=== PATIENT | female | born 1995 | race Two or more races ===

== ENCOUNTER 2019-12-13 19:44 | Emergency (ER) | payer OTHER, SELFPAY ==
[2019-12-13 19:49] VITALS: BP 120/74; PULSE 88; RESP 20; TEMP 37.2; O2SAT 100
--- NOTE | 2019-12-13 20:24 | ED.GENADULT ---
HPI - General Adult General Chief complaint: Nausea/Vomiting/Diarrhea Stated complaint: nausea Time Seen by Provider: 12/13/19 20:24 Source: patient Mode of arrival: ambulatory Limitations: no limitations History of Present Illness HPI narrative: 24-year-old female patient presents to the [facility] with complaints of diarrhea nausea that started this morning. Patient denies take anything for her symptoms. Patient denies any fevers or vomiting. Patient states that her abdomen feels sore from the frequent diarrhea and states that she feels achy all over. Patient denies any or breast-feeding at that time. Related Data Allergies Allergy/AdvReac Type Severity Reaction Status Date / Time Penicillins AdvReac Intermediate ABDOMINAL Verified 12/13/19 19:57 PAIN AND DIARRHEA Review of Systems Review of Systems: Narrative: CONSTITUTIONAL: Denies fever, chills, or sweats. EYES: Denies visual changes, redness, or discharge. ENT: Denies rhinorrhea, congestion, sore throat, or otalgia. CARDIOVASCULAR: Denies chest pain, palpitations, or edema. RESPIRATORY: Denies cough or dyspnea. GASTROINTESTINAL: Denies abdominal pain, positive nausea, denies vomiting, positive diarrhea. GENITOURINARY: Denies dysuria or hematuria. SKIN: Denies rash or itching. MUSCULOSKELETAL: Denies back pain, joint pain, or myalgia. NEUROLOGIC: Denies headache, numbness, or weakness. PSYCHIATRIC: Denies anxiety or depression. PMFSH Comments At the time of my signature I agree with nursing past medical history, surgical, social, and family history. There is no relevant family history pertinent to the presenting complaint. Exam Narrative: Exam Narrative: GENERAL: Well-appearing, well-nourished, and in no acute distress. HEAD: Normocephalic, atraumatic. EYES: PERRLA and EOMI. ENT: Nares clear, no rhinorrhea or epistaxis. Mucous membranes moist. NECK: Supple. No lymphadenopathy CHEST: Clear to auscultation. No respiratory distress. HEART: Regular rate and rhythm. No murmur heard. Normal peripheral pulses. ABDOMEN: Soft, flat, nondistended. No guarding, rebound tenderness, or rigid. Patient has some cramping to the lower abdomen but no tenderness on palpation at this time. No pulsatilla masses. Bowel sounds present in all four quadrants and hyperactive. No organomegaly. Negative Kwan?s sign. No periumbicial tenderness. No Supra public tenderness or distension. Good femoral pulses bilaterally. No hernia noted. No scars or surface trauma. EXTREMITIES: Normal range of motion. No edema. SKIN: Warm, dry, no rash. NEURO: No focal deficits. Alert and oriented x3. Course Vital Signs Vital signs: Vital Signs Temperature 37.2 C 12/13/19 19:49 Pulse Rate 88 12/13/19 19:49 Respiratory Rate 12/13/19 19:49 Blood Pressure 120/74 12/13/19 19:49 Pulse Oximetry 100 12/13/19 19:49 Temperature 37.2 C 12/13/19 19:49 Pulse Rate 88 12/13/19 19:49 Respiratory Rate 12/13/19 19:49 Blood Pressure 120/74 12/13/19 19:49 Pulse Oximetry 100 12/13/19 19:49 Vital signs reviewed. Medical Decision Making Differential Diagnosis Differential Diagnosis: Differential diagnosis: Appendicitis, ovarian torsion, gallbladder disease, ovarian torsion, pancreatitis, lower lobe pneumonia,AAA, AMI or ACS, DKA, diverticulitis. Discussed with patient that this is most likely viral and the fact that she is not vomiting or running fevers is reassuring. Discussed with patient that I will discharge her home with some Zofran to help with the nausea and any vomiting that may occur but she needs to let the diarrhea run its course. Discussed with patient if she feels like she is getting dehydrated or she starts vomiting running fevers or having worsening abdominal pain she would need to go the ER at that time. Patient verbalized understanding denies any other questions or concerns at this time. Vital Signs Vital Signs: Vital Signs Temperature 37.2 C
== END 2019-12-13 20:35 | disposition home or self-care (01) ==
PROVIDERS: Emergency Provider Nurse Practitioner Family
DX: K52.9 Noninfective gastroenteritis and colitis, unspecified (principal); J45.909 Unspecified asthma, uncomplicated
CPT/HCPCS: 99213; G0463

== ENCOUNTER 2020-01-02 19:57 | Emergency (ER) | payer OTHER, SELFPAY ==
[2020-01-02 20:00] VITALS: BP 133/71; PULSE 87; RESP 18; TEMP 36.8; O2SAT 100
--- NOTE | 2020-01-02 20:25 | ED.GENADULT ---
HPI - General Adult General Chief complaint: Nausea/Vomiting/Diarrhea Stated complaint: nausea and diarrhea Time Seen by Provider: 01/02/20 20:27 Source: patient and RN notes reviewed Mode of arrival: ambulatory Limitations: no limitations History of Present Illness HPI narrative: This is a 24 years old female presented office for evaluation of nauseous and diarrhea since this morning. Describes stool as loose. Denies vomiting. Denies fever or sick contact. Stated she was seen here a month ago with similar symptoms and resolve in 1 day. Denies changes in diet. Denies urinary symptoms or chance of . Stated she on control. She would like a school excuse today. I reviewed patient previous visit. HPI - General Adult General Chief complaint: Nausea/Vomiting/Diarrhea Stated complaint: nausea Time Seen by Provider: 12/13/19 20:24 Source: patient Mode of arrival: ambulatory Limitations: no limitations History of Present Illness HPI narrative: 24-year-old female patient presents to the [facility] with complaints of diarrhea nausea that started this morning. Patient denies take anything for her symptoms. Patient denies any fevers or vomiting. Patient states that her abdomen feels sore from the frequent diarrhea and states that she feels achy all over. Patient denies any or breast-feeding at that time. Related Data Home Medications Medication Instructions Recorded Confirmed No Home Medications 01/02/20 01/02/20 Allergies Allergy/AdvReac Type Severity Reaction Status Date / Time Penicillins AdvReac Intermediate ABDOMINAL Verified 12/13/19 19:57 PAIN AND DIARRHEA Review of Systems Review of Systems: Narrative: CONSTITUTIONAL: Denies fever, chills, sweats. ENT: Denies rhinorrhea, congestion, sore throat, otalgia. CARDIOVASCULAR: Denies chest pain, palpitation, edema. RESPIRATORY: Denies dyspnea, wheezing, cough GASTROINTESTINAL: Denies abdominal pain, nausea, vomiting, diarrhea. GENITOURINARY: Denies urinary symptoms or discharge SKIN: Denies rash MUSCULOSKELETAL: Denies acute back pain NEUROLOGIC: Denies lightheaded PMFSH Comments At time of signature, I agree with nursing past medical, surgical, social and family history. There is no relevant family history pertinent to the presenting complaint. Exam Narrative: Exam Narrative: GENERAL: This is a well-nourished, well-developed patient, in no apparent distress. EYES: Sclera clear/white. Vision is grossly intact. EARS: External ears normal, auditory canals clear and without drainage, TMs normal without perforation. Hearing grossly intact. NOSE: External nose normal with no obvious nasal discharge, nares without redness, no rhinorrhea. THROAT: Mucous membranes moist, posterior pharynx clear. NECK: Neck supple, non-tender without lymphadenopathy, masses or thyromegaly. CARDIOVASCULAR: Regular rate and rhythm without murmurs, gallops, or rubs. RESPIRATORY: Clear to auscultation. Breath sounds equal bilaterally. No wheezes, rales, or rhonchi. GASTROINTESTINAL: Abdomen soft, non-tender, nondistended. Bowel sounds are active. No hepato-splenomegaly, or palpable masses. No guarding. SKIN: warm, intact with no suspicious lesions or rash, good texture and turgor. NEURO: awake, alert, and oriented to person, place and time. There were no obvious focal neurologic abnormalities. Steady gait Tee Coma Scale Eye Opening: Spontaneous 4 Tyler Coma Scale Motor: Obeys Commands 6 Tee Coma Scale Verbal: Oriented 5 Course Vital Signs Vital signs: Vital Signs Temperature 98.2 F 01/02/20 20:00 Pulse Rate 87 01/02/20 20:00 Respiratory Rate 18 01/02/20 20:00 Blood Pressure 133/71 01/02/20 20:00 Pulse Oximetry 100 01/02/20 20:00 Temperature 98.2 F 01/02/20 20:00 Pulse Rate 87 01/02/20 20:00 Respiratory Rate 18 01/02/20 20:00 Blood Pressure 133/71 01/02/20 20:00 Pulse Oximetry 100 01/02/20 20:00
== END 2020-01-02 20:45 | disposition home or self-care (01) ==
PROVIDERS: Emergency Provider Nurse Practitioner
DX: R19.7 Diarrhea, unspecified (principal); J45.909 Unspecified asthma, uncomplicated
CPT/HCPCS: 99211; G0463

== ENCOUNTER 2020-01-08 19:42 | Emergency (ER) | payer OTHER, SELFPAY ==
[2020-01-08 20:00] VITALS: BP 144/84; PULSE 77; RESP 16; TEMP 37.2; O2SAT 100
--- NOTE | 2020-01-08 20:29 | ED.ABDPAIN ---
HPI - Abdominal Pain General Chief Complaint: Abdominal Pain Stated Complaint: abd pain/vomiting/diarrhea Time Seen by Provider: 01/08/20 20:14 Source: patient, RN notes reviewed and old records reviewed Mode of arrival: ambulatory Limitations: no limitations History of Present Illness HPI narrative: Patient presents today complaining of nausea, vomiting, abdominal pain, diarrhea, bilateral flank pain. She vomited once at 11:00 this morning. States she has diarrhea stools after every time she eats or drinks today. Twice in the recent past, patient has been seen at [facility] for similar symptoms: 12/13/2019 and 01/02/2020. States the symptoms usually resolve within 24 hours. Patient has been given nausea medication and has been told to follow-up with her PCP. She has not followed up after either appointment. She currently rates her pain 5/10. She has tried no interventions for symptoms prior to arrival. States much of the time, her abdominal pain improves after bowel movements. States she needs a school note. MD elicited complaint: abdominal pain Related Data Home Medications Medication Instructions Recorded Confirmed albuterol sulfate 2 puff INHALATION QID PRN 01/08/20 01/08/20 medroxyprogesterone [Depo-Provera] 150 mg IM [id number] 01/08/20 01/08/20 Allergies Allergy/AdvReac Type Severity Reaction Status Date / Time Penicillins AdvReac Intermediate ABDOMINAL Verified 01/08/20 20:09 PAIN AND DIARRHEA Review of Systems Review of Systems: Narrative: CONSTITUTIONAL: Denies body aches, fever, chills, or sweats. EYES: Denies visual changes, redness, or discharge. ENT: Denies rhinorrhea, congestion, sore throat, or otalgia. CARDIOVASCULAR: Denies chest pain, palpitations, or edema. RESPIRATORY: Denies cough or dyspnea. GASTROINTESTINAL: Nausea, vomiting, abdominal pain, diarrhea, flank pain GENITOURINARY: Denies dysuria or hematuria. SKIN: Denies rash, itching, or wounds. MUSCULOSKELETAL: Denies back pain, joint pain, or myalgia. NEUROLOGIC: Denies headache, numbness, tingling, or weakness. PSYCH: Denies depression or anxiety. [facility] Surgical History Surgical History (Updated 01/09/20 @ 11:00 by Lorena Urbina, TECHNICAL SERVICES ASSISTANT, BC) History of appendectomy Comments At time of signature, I have reviewed and agree with nursing past medical, surgical, social and family history unless otherwise noted. Please see nursing chart for further information. There is no relevant family history pertinent to the presenting complaint Exam Narrative: Exam Narrative: GENERAL: Well-appearing, well-nourished, and in no acute distress. Pain out of proportion to exam findings. HEAD: Normocephalic, atraumatic. EYES: EOMI. No redness or drainage. Conjunctivae normal. ENT: Mucous membranes pink and moist. Nares clear. No rhinorrhea. TMs normal bilaterally. Throat normal. Uvula midline. NECK: Normal AROM. Supple. No lymphadenopathy. CHEST: No respiratory distress. Clear to auscultation. HEART: Regular rate and rhythm. No murmur appreciated. Normal peripheral pulses. ABDOMEN: Soft, nondistended, normal active bowel sounds.-CVAT. Mild tenderness to the epigastrium. Patient is guarding her entire body from touch. States that touching the skin of her abdomen is tender. When I palpated her periumbilical area, she jumped stating, I just don't like my belly button touched , but denies tenderness to my palpation. She seems to be reacting very dramatically to evaluation. MUSCULOSKELETAL: No bony tenderness. EXTREMITIES: Normal range of motion. No edema. SKIN: Warm, dry, no rash. NEURO: No focal deficits. Alert and oriented x3. Gait steady. PSYCH: Normal affect. No signs of depression or anxiety. Course Course Emergency Course: Since patient has presented to [facility] 3 times in the last month for similar symptoms, I have offered transfer to the ER for further evaluation, as patient is aware of our limitations at [facility]. She orellana
== END 2020-01-08 20:35 | disposition home or self-care (01) ==
PROVIDERS: Emergency Provider Nurse Practitioner
DX: R10.9 Unspecified abdominal pain (principal); R19.7 Diarrhea, unspecified; J45.909 Unspecified asthma, uncomplicated
CPT/HCPCS: 99211; G0463

== ENCOUNTER 2020-08-02 12:00 | Emergency (ER) | payer OTHER, SELFPAY ==
[2020-08-02 12:04] VITALS: BP 123/78; PULSE 75; RESP 18; TEMP 36.9; O2SAT 99
--- NOTE | 2020-08-02 12:09 | ED.EAR ---
HPI - Ear Problem General Chief complaint: Ear Stated complaint: crackling in left ear/pain in left ear Time Seen by Provider: 08/02/20 12:09 Source: patient and RN notes reviewed History of Present Illness HPI Narrative: Patient is a 25-year-old female who presents the urgent care with complaints of left ear crackling and left itchy eye with soreness to the inner canthus. Patient states that the ear started approximately 3 weeks ago and the itchy eyes started approximately 1 week ago. Patient denies any use of [id number] medication. No other acute complaints. No acute distress noted. Patient aware of the plan of care. Some parts of this dictation were generated by voice recognition software and may contain typographical and/or grammatical inaccuracies. Related Data Allergies Allergy/AdvReac Type Severity Reaction Status Date / Time Penicillins AdvReac Intermediate ABDOMINAL Verified 08/02/20 12:17 PAIN AND DIARRHEA Review of Systems Review of Systems: Narrative: CONSTITUTIONAL: Denies fever, chills, or sweats. EYES: Reports of itchy left eye with soreness ENT: Reports of left ear crackling CARDIOVASCULAR: Denies chest pain, palpitations, or edema. RESPIRATORY: Denies cough or dyspnea. GASTROINTESTINAL: Denies abdominal pain, nausea, vomiting, or diarrhea. GENITOURINARY: Denies dysuria or hematuria. SKIN: Denies rash or itching. MUSCULOSKELETAL: Denies back pain, joint pain, or myalgia. NEUROLOGIC: Denies headache, numbness, or weakness. All other systems reviewed are negative, except as documented in HPI. PMFSH Surgical History Surgical History (Updated 01/09/20 @ 11:00 by Lorena Urbina, [facility], ) History of appendectomy Comments At the time of my signature, I reviewed and agree with the nursing past medical, surgical, social, and family history. There is no relevant family history pertinent to the patient complaint. Exam Narrative: Exam Narrative: GENERAL: This is a well-nourished, well-developed patient, in no apparent distress. HEAD: normocephalic, atraumatic. EYES: PERRL. Sclera clear/white. Vision is grossly intact. No obvious swaddling, drainage, mild soreness noted to the left eye inner canthus EARS: External ears normal, auditory canals clear and without drainage, mild fluid noted behind bilateral TMs without otitis, TMs normal without perforation. Hearing grossly intact. NOSE: External nose normal with no obvious nasal discharge, nares without redness, no rhinorrhea. THROAT: Mucous membranes moist NECK: Neck supple SKIN: warm, intact with no suspicious lesions or rash, good texture and turgor. NEURO: awake, alert, and oriented to person, place and time. There were no obvious focal neurologic abnormalities. EXTREMITIES: No clubbing, cyanosis, or edema. Course Vital Signs Vital signs: Vital Signs Temperature 98.4 F 08/02/20 12:04 Pulse Rate 75 08/02/20 12:04 Respiratory Rate 18 08/02/20 12:04 Blood Pressure 123/78 08/02/20 12:04 Pulse Oximetry 99 08/02/20 12:04 Temperature 98.4 F 08/02/20 12:04 Pulse Rate 75 08/02/20 12:04 Respiratory Rate 18 08/02/20 12:04 Blood Pressure 123/78 08/02/20 12:04 Pulse Oximetry 99 08/02/20 12:04 Reviewed Medical Decision Making MDM Narrative Medical decision making narrative: Advised the patient to use a daily antihistamine such as Claritin/Zyrtec/Benadryl, for left ear relief and itchy eye. Use the eyedrops to the left eye as directed, cleaning the applicator tip after each application. May use a warm compress to the left eye as needed for comfort. Use Flonase nasal spray as directed. Sleep with a humidifier at night. Do not sleep with the windows open, or a fan on. Follow-up with your PCP within 2 to 5 days if her worsening symptoms or failure to improve. Differential Diagnosis Differential Diagnosis: Pneumonia, Allergic Rhinitis, Upper respiratory cough syndrome, Pharyngitis, Sinusitis, Bronchitis, otitis media
== END 2020-08-02 12:27 | disposition home or self-care (01) ==
PROVIDERS: Emergency Provider Nurse Practitioner Family
DX: H92.02 Otalgia, left ear (principal); H57.89 Other specified disorders of eye and adnexa; J45.909 Unspecified asthma, uncomplicated
CPT/HCPCS: 99213; G0463